=== PATIENT | male | born 1960 | race Hispanic/Latino ===

== ENCOUNTER 2021-05-21 12:55 | Emergency (ER) | payer MEDICAID, SELFPAY ==
[2021-05-21 13:41] VITALS: BP 126/92; PULSE 99; RESP 18; TEMP 36.5; O2SAT 98; BMI 28.3
[2021-05-21] MEDS: Cyclopentolate 1% 2 ML Bottle 2 DRP EACH EYE (15:53)
--- NOTE | 2021-05-21 16:30 | EX.ED.VIS.EY ---
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 He states 5 days ago he noticed trouble driving. He had trouble driving at night with lights approaching. Has not had an active exam for some time. He is not wear glasses. He denies headache. Denies ringing his ears, decreased hearing or drainage from his ears. Denies drainage from his nose. Denies trouble with speech or swallowing. Denies problems with balance. He denies paresthesia, anesthesia medics. He denies difficulty using his arms or legs. He has no other symptoms. Prior similar symptoms: No Recent Illness/Hospitalization: No [facility] Medical History Diabetes HTN (hypertension) Allergy/AdvReac Type Severity Reaction Status Date / Time No Known Allergies Allergy Verified 05/21/21 13:45 Social History (Updated 05/21/21 @ 16:[address] Manjit Muñiz MD) household members: none Smoking Status: Current every day smoker tobacco type: cigarettes alcohol intake: current alcohol intake frequency: other substance use type: does not use ROS ROS ED Constitutional Constitutional ED: Denies chills, fever(s), subjective, sweats or weight loss Eyes Eyes: Reports blurry vision bilateral and other Details: Patient presently states he cannot see anything out of his left eye and having difficulty seeing anything out of his right eye ; Denies change in vision ENT ENT ED: Denies ear pain, rhinorrhea or sore throat Cardiovascular Cardiovascular: Denies chest pain, palpitations or racing heartbeat Respiratory/Chest Respiratory/Chest: Denies cough or dyspnea Gastrointestinal Gastrointestinal: Denies nausea or vomiting Neurologic Neurologic: Denies headache(s), paresthesias or weakness Hematologic/Lymphatic Hematologic/Lymphatic: Denies easy bleeding or easy bruising Allergic/Immunologic Allergic/Immunologic ED: Denies mouth swelling, tongue swelling or urticaria EXAM Physical Exam Const Vital Signs: 05/21/21 13:41 Temperature 97.7 F L Temperature Source Temporal Pulse Rate 99 Respiratory Rate 18 Blood Pressure 126/92 H Blood Pressure Mean 103 Pulse Ox 98 Oxygen Delivery Method Room Air Positive well nourished and well developed General Appearance ED: well developed and NAD HEENT Reports TM's clear atraumatic Nose: external nose normal and nares normal Tympanic Membrane ED: Yes TM's clear Eyes General Eye ED: Yes normal appearance of both eyes; Negative for normal light reflex, enophthalmos, exophthalmos, proptosis, pale conjunctiva or scleral icterus Alignment: alignment normal Periorbital: periorbital findings normal Eyelid: eyelids normal Conjunctiva: conjunctiva normal Sclera: sclera normal Cornea: cornea normal Pupil: PERRL EOM: EOM abnormal Direct Ophthalmoscopy: other Other Detail: Patient has a large cataract left eye. There is no red light reflex. There appears to be a significant cataract right eye as well. Unable to see fundi. Neck no lymphadenopathy, supple and no JVD Resp normal respiratory effort and clear to auscultation bilaterally Cardio regular rate, regular rhythm, S1 normal heart sound, S2 normal heart sound and no murmurs Extremity normal to inspection General Extremety ED: Negative for edema General Extremity: Negative for edema Neuro oriented x3, moves all extremities and no sensory deficits noted Sensorium / Orientation: alert Psych Psych Narrative: Mood and affect are normal Skin no wounds Lesions: no lesions Rashes: no rashes MDM MDM MDM Narrative Medical decision making narrative: Suspect patient's vision problems is due to significant cataracts. Will dilate eyes and attempt funduscopic exam and will have nurse assess visual acuity There is line I was informed 2020 that patient was able to see the baby on the chart. Patient's eyes are dilated. Patient has no red light reflex. Concern he has bilateral cataracts at obstructing his vision. Will contact Dr. Morgan who is on-call for ophthalmology Dr. Morgan suggested checking her blood sugar. He is concerned patient has a hemorrhage due to diabetes. Blood sugar is elevated 187. He states he would see the patient at 8:00 in the morning. Spoke with case management to facilitate arrangements for stay overnight and for patient be seen at 8:00 in the morning at Dr. Morgan office. Discharge Plan Triage Chief Complaint: Vision Prob ED Provider: Manjit Muñiz Dx/Rx/DC Orders Clinical Impression: Binocular vision loss, Acute hyperglycemia Primary Care Provider: Care Physician,No Primary Referrals: Ketan Morgan MD [STAFF PHYSICIAN] - As soon as possible Care Physician,No Primary [Primary Care Provider] - Activity Restrictions/Additional Instructions: Dr. Morgan will see you at 8:00 in the morning at his office. Disposition Disposition: Home, Self Care
[2021-05-21 19:08] VITALS: BP 149/77
[2021-05-21 21:01] LABS: Bedside Glucose 187 mg/dL (70-110)
--- NOTE | 2021-05-21 23:02 | CM.ED ---
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 Morgan appointment at 8:00 am. SW met with patient and reviewed options regarding patient getting to MD appointment and patient's stay tonight. Patient said that he has money but only a limited amount and would have to transfer money to another account. After much discussion and problem solving techniques, which included patient asking to speak to his employer, a plan was developed. Patient will taxi ride to his truck which is at [address]. The other regional owner operator truck driver is there so tomorrow morning the other regional owner operator truck driver will take him to his appointment with Dr. Morgan and get him back to the truck. Patient said that he will need to fly home to [place] and inquired about the nearest airport. SW repeatedly voiced that patient needs to follow up with his appointment on 05/22 with MD Morgan. Patient verbalized understanding. Rocio, secretary of police called taxi for patient to leave the ED. Patient was advised he would need to pay for taxi tomorrow. LONNIE and Rocio had tried to schedule at taxi for 7:30am on 05/22 to take patient to MD Morgan appointment but the earliest taxi available was at 8:30am on 05/22 thus patient was able to voice he would ask the other regional owner operator truck driver to provide ride to appointment. Patient left hospital with discharge paperwork and this bond writer voiced the importance of him following up. No further SW needs identified at this time. Plan: Return to patient's truck to sleep overnight and then other regional owner operator truck driver will take him to appointment in the morning at Dr. Eddie BERGER
== END 2021-05-21 22:00 | disposition home or self-care (01) ==
PROVIDERS: Emergency Provider Emergency Medicine
DX: E11.65 Type 2 diabetes mellitus with hyperglycemia (principal); H54.7 Unspecified visual loss; E11.36 Type 2 diabetes mellitus with diabetic cataract; F17.210 Nicotine dependence, cigarettes, uncomplicated
CPT/HCPCS: 82962; 99283